=== PATIENT | female | born 1930 | race Caucasian/White ===

== ENCOUNTER 2016-12-29 16:34 | Inpatient (IN) | payer OTHER, MEDICARE ==
[~2016-12-29 16:34] MED LIST: CEFTRIAXONE 1 GM in DEXTROSE 5%-WATER - 50 ML IVPB SCH
--- NOTE | 2016-12-29 17:22 | PDOC ---
History of Present Illness - General Chief Complaint: Injury Stated Complaint: FALL History Source: Patient Exam Limitations: No Limitations - History of Present Illness Initial Comments: 12/29/16 17:06 Patient is a 86 yo F with PMH of IDDM1, who BIBEMS s/p mechanical unwitnessed fall. Patient states that she was in her usual health when she tripped and fell backward landing on her buttocks and mower back. She denies trauma to upper extremities, ribs, head. She denies LOC, focal neuro deficits, dizziness, palpitations, chest pain, nause/vomiting. She denies recent f/c, diarrhea, constipation, melena, hematochezia, LE edema, ataxia, unsteady gait. patient states that she was eventually able to get up and walk, although with pain in LLE. EMS states that she lives alone, they had to break into her apt, which was in unliveable conditions and filthy, appearing as if patient could not take care of herself. Her vital on admission are stable. She was hospitalized a yr ago due to R femur fracture s/p mechanical fall. PCP Dr Lynne 12/29/16 17:42 12/29/16 17:45 12/29/16 17:48 Past History - Past Medical History Allergies/Adverse Reactions: Allergies Allergy/AdvReac Type Severity Reaction Status Date / Time No Known Allergies Allergy Verified 08/22/14 14:00 Diabetes: Yes (nid) - Immunization History Immunization Up to Date: Yes - Psycho/Social/Smoking Cessation Hx Anxiety: No Suicidal Ideation: No Smoking History: Former smoker Have you smoked in the past 12 months: No Number of Cigarettes Smoked Daily: 10 Information on smoking cessation initiated: No 'Breaking Loose' booklet given: 08/22/14 Hx Alcohol Use: No Drug/Substance Use Hx: No Substance Use Type: None Review of Systems - Review of Systems Able to Perform ROS?: Yes Is the patient limited Serbian proficient: No Constitutional: Yes: Weakness (lle ). No: Chills, Fever HEENTM: No: Eye Pain, Blurred Vision, Double Vision, Nose Congestion, Throat Pain, Difficulty Swallowing Respiratory: No: Cough, Orthopnea, Shortness of Breath, Wheezing, Hemoptysis Cardiac (ROS): No: Chest Pain, Edema, Lightheadedness, Palpitations, Syncope ABD/GI: No: Abdominal Distended, Constipated, Diarrhea, Nausea, Rectal Bleeding , Vomiting, Abdominal cramping, Tarry Stools : No: Dysuria, Flank Pain Musculoskeletal: Yes: Joint Pain (L hip, femur pain ). No: Back Pain Integumentary: Yes: Dryness. No: Bruising, Change in Color, Rash Neurological: No: Headache, Numbness, Paresthesia, Seizure Psychiatric: No: Anxiety, Depression Endocrine: Yes: Change in Weight (cachectic ) Hematologic/Lymphatic: No: Anemia, Blood Clots, Easy Bleeding, Easy Bruising All Other Systems: Reviewed and Negative *Physical Exam - Vital Signs Last Vital Signs Temp Pulse Resp BP Pulse Ox 98.2 F 85 18 139/69 97 12/29/16 16:55 12/29/16 16:55 12/29/16 16:55 12/29/16 16:55 12/29/16 16:55 - Physical Exam Comments: 12/29/16 17:50 General: aao x 3 NAD HEENT: atraumatic, normocephalic, PERRLA EOMI, sclera anicteric, conjunctiva clear, dry mucous membranes CV: rrr s1s2 g Pulm: cta b/l GI: soft, nonender, nondistended, normoactive bowel sounds, no mass Musculoskeletal:no peripheral edema, L femur pain to palpation and with massive flexion of hip, unable to actively flex hip or bend knee, bridget gross bony deformities or spinal tenderness Neuro: CN II-XII intact, strenght 4-/5 un b/l upper and RLE. 3/5 LLE due to pain /weakness, bicep and patellar reflexes 1+ b/l Heart Score/ECG Review #1 ECG reviewed & interpreted by me at: 17:30 General ECG Interpretation: Sinus Rhythm, Normal Rate, Normal Intervals, No acute ischemic changes (nonspecific t flattening/inversion in precordial leads) ED Treatment Course - LABORATORY CBC & Chemistry Diagram: 12/29/16 17:30 12/29/16 17:30 Medical Decision Making - Medical Decision Making 12/29/16 17:53 Patient presents due to unwithessed mechanical fall. R/o fracture in affected area, metabolic and infections causes of fall -cbc w diff, cmp, ua, x ray L hip, lepvis, L spine/sacrum, L femur, L knee, CXR EKG unremarkable for arrythmia, strain or acs 12/29/16 18:49 X rays reveal patient is s/p b/l ORIF with IM nail in femurs, official read p/d Patient to be admitted due to inability to work, unsafe living condition and PT eval. Spoke to Dr Lares, she recommends CT pelvis w/o contrast 12/29/16 18:51 12/29/16 18:52 12/29/16 18:58 *DC/Admit/Observation/Transfer Diagnosis at time of Disposition: Unable to walk, Fall - Discharge Dispostion Admit: Yes
[2016-12-29] MEDS ORDERED: SODIUM CHLORIDE 1,000 ML IV STA (17:24)
[2016-12-29 18:31] LABS: ALBUMIN 3.7 g/dl (3.4-5.0); ANION GAP 14 (8-16); BILIRUBIN,TOTAL 1.7 mg/dL (0.2-1.0); CALCIUM 9.3 mg/dL (8.5-10.1); CO2 22 mmol/L (21-32); CREATININE 1.2 mg/dL (0.55-1.02); SGPT/ALT 27 U/L (12-78)
--- NOTE | 2016-12-29 19:15 | PDOC ---
Attending Attestation - Resident Resident Name: Ann Julien - ED Attending Attestation I have performed the following: I have examined & evaluated the patient, The case was reviewed & discussed with the resident, I agree w/resident's findings & plan - HPI HPI: 12/29/16 19:12 86 yo F with h/o DM, currently living alone, here s/p trip and fall. pt states she slipped backward and fell, landing on her back and hip. c/o left hip pain. was unable to walk after fall, crawled to phone. no head trauma. no loc no neck pain. per EMS on arrival pt in poor living conditions, filthy and unkempt. 01/11/17 18:29 - Physicial Exam PE: 12/29/16 19:16 on exam awake, alert l. head atraumatic. no cervical spine tenderness. lungs clear bilaterally. heart RRR no mrg/ abd soft NT ND. eext wwp. left hip ttp. min hip flexion due to pain, kne decre flex/ ext due to pain. 2 + dp/ pt pulses. right hip NT FROM. no mildline spinal tenderness. skin warm and dry. nuero alert and oriented x 3. - Medical Decision Making 01/11/17 18:30 pt will require admission. r/o traumatic injuris, syncope. labs r/o infction with ua. admit for social work pt possible placement or homesafety eval Heart Score/ECG Review #1 ECG reviewed & interpreted by me at: 17:30 General ECG Interpretation: Sinus Rhythm, Normal Rate (81), Normal Intervals, No acute ischemic changes NIH Stroke Scale - Initial Evaluation Level of consciousness: Alert Ask patient the month and their age: Answers both correctly Ask patient to open & close eyes; make fist and let go: Obeys both correctly Best gaze (horizontal eye movement): Normal Visual field testing: No visual field loss Facial paresis (Show teeth/raise eyebrows/close eyes tight): Normal symmetrical movement Motor Function: Left Arm: Normal Motor Function: Right Arm: Normal (extends arm 90 (or 45) degrees for 10 seconds without drift Motor Function: Left Leg: Normal (extends leg 30 degrees for 5 seconds without drift) Motor Function: Right Leg: Normal (extends leg 30 degrees for 5 seconds without drift) Limb Ataxia: No ataxia Sensory(Use pinprick test arms,legs,trunk,face/side to side): Normal Best language (Describe picture, name items, read sentences): No Aphasia Dysarthria (read several words): Normal articulation Extinction and Inattention: No abnormality - Total Score NIH Stroke Scale Score: 0
[2016-12-29 19:26] LABS: GLUCOSE,RANDOM 407 mg/dL (74-106)
[2016-12-29 19:36] LABS: BASOPHIL 0.8 % (0-2.0); EOSINOPHIL 0.2 % (0-4.5); MCH 31.3 pg (25.7-33.7); MCHC 32.5 g/dl (32.0-36.0); MEAN CELL VOLUME 96.1 fl (80-96); MEAN PLT VOLUME 8.8 fl (7.5-11.1); NEUTROPHILS 83.3 % (42.8-82.8); PLATELET COUNT 193 K/MM3 (134-434); RDW 14.1 % (11.6-15.6); WHITE BLOOD COUNT 10.8 K/mm3 (4.0-10.0)
[2016-12-29 19:55] LABS: ALK PHOS 78 U/L (45-117); SGOT/AST 37 U/L (15-37)
[2016-12-29] MEDS ORDERED: SODIUM CHLORIDE 0.9% 1000 ML INFUS.BAG IV ONE (21:08)
[2016-12-29 21:40] LABS: URINE APPEARANCE CLEAR; URINE BILIRUBIN NEGATIVE (NEGATIVE); URINE COLOR STRAW; URINE GLUCOSE (UA) 3+ (NEGATIVE); URINE KETONE 1+ (NEGATIVE); URINE NITRITE POSITIVE (NEGATIVE); URINE PROTEIN NEGATIVE (NEGATIVE); URINE UROBILINOGEN NEGATIVE E.U./dl (0.2-1.0)
[2016-12-29 21:56] LABS: URINE BLOOD 2+ (NEGATIVE); URINE LEUK ESTERASE TRACE (NEGATIVE)
[2016-12-29 22:00] LABS: URINE BACTERIA MANY /hpf (NONE SEEN); URINE RBC 1 /hpf (0-3); URINE WBC 8 /hpf (3-5)
[2016-12-29] MEDS ORDERED: SODIUM CHLORIDE 0.45% 1,000 ML IV SCH (23:15)
[2016-12-30 01:45] VITALS: BMI 21.9
[2016-12-30] MEDS: INSULIN SLIDING SCALE (NOVOLOG) 1 VIAL SQ SCH ×3 (06:58→17:43)
[2016-12-30] MEDS ORDERED: INSULIN DETEMIR 100 UNITS/ML MDV SQ SCH (07:00)
[2016-12-30] MEDS ORDERED: PT OWN MED DRAWER 7, Y5N ONE (09:29)
[2016-12-30] MEDS: cefTRIAXone 1 GM/50 ML BAG (PRE-DOCKED) IVPB SCH (09:41)
[2016-12-30] MEDS: ENOXAPARIN NA (PORCINE) 40 MG/0.4 ML DISP.SYRIN SQ SCH (09:42)
--- NOTE | 2016-12-30 10:57 | HP ---
Admitting History and Physical - Primary Care Physician PCP: Mike Carter - Admission Chief Complaint: s/p fall History of Present Illness: ER HISTORY - History of Present Illness Initial Comments: 12/29/16 17:06 Patient is a 86 yo F with PMH of IDDM1, who BIBEMS s/p mechanical unwitnessed fall. Patient states that she was in her usual health when she tripped and fell backward landing on her buttocks and mower back. She denies trauma to upper extremities, ribs, head. She denies LOC, focal neuro deficits, dizziness, palpitations, chest pain, nause/vomiting. She denies recent f/c, diarrhea, constipation, melena, hematochezia, LE edema, ataxia, unsteady gait. patient states that she was eventually able to get up and walk, although with pain in LLE. EMS states that she lives alone, they had to break into her apt, which was in unliveable conditions and filthy, appearing as if patient could not take care of herself. Her vital on admission are stable. She was hospitalized a yr ago due to R femur fracture s/p mechanical fall. Pt examined by me on the floors Her niece is with her . Pt c/o pain in left hip. She was putting her shoes on when she tripped over and fell. She sometimes uses walker to ambulate She lives alone. Has had multiple falls in the past. As per niece, when she fell yesterday, her neighbors came by and saw that she fell , the pt herself told them not to call EMS. EMS came to see her in a bad living condition, unsafe and unkept. Family lives in [facility] , only friends live nearby. Pt denies dizziness, chest pain or SOB. has pain when she walks . History Source: Patient, Family Member Limitations to Obtaining History: No Limitations - Past Medical History ...: No Endocrine: Yes: Diabetes Mellitus - Past Surgical History Past Surgical History: Yes: Joint Replacement - Smoking History Smoking history: Former smoker Have you smoked in the past 12 months: Yes Aproximately how many cigarettes per day: 10 - Alcohol/Substance Use Hx Alcohol Use: No Home Medications - Allergies Allergies/Adverse Reactions: Allergies Allergy/AdvReac Type Severity Reaction Status Date / Time No Known Allergies Allergy Verified 08/22/14 14:00 - Home Medications Home Medications: Ambulatory Orders Unobtainable [Unobtainable] 12/29/16 Review of Systems - Review of Systems Constitutional: denies: Chills, Fever, Weakness Musculoskeletal: reports: Joint Pain Physical Examination Vital Signs: Vital Signs Temperature 97.9 F 12/30/16 06:00 Pulse Rate 85 12/30/16 06:00 Respiratory Rate 20 12/30/16 06:00 Blood Pressure 155/80 12/30/16 06:00 O2 Sat by Pulse Oximetry (%) 98 12/29/16 22:15 Constitutional: Yes: No Distress, Calm Cardiovascular: Yes: Regular Rate and Rhythm Respiratory: Yes: Diminished Gastrointestinal: Yes: Normal Bowel Sounds, Soft. No: Distention, Tenderness Extremities: Yes: Other (left hip tenderness). No: Shortened Edema: No Psychiatric: Yes: Alert, Oriented Labs: Laboratory Last Values WBC 11.7 K/mm3 (4.0-10.0) H 12/30/16 10:20 RBC 3.78 M/mm3 (3.60-5.2) 12/30/16 10:20 Hgb 11.9 GM/dL (10.7-15.3) 12/30/16 10:20 Hct 36.3 % (32.4-45.2) 12/30/16 10:20 MCV 95.9 fl (80-96) 12/30/16 10:20 MCHC 32.7 g/dl (32.0-36.0) 12/30/16 10:20 RDW 14.0 % (11.6-15.6) 12/30/16 10:20 Plt Count 166 K/MM3 (134-434) 12/30/16 10:20 MPV 7.7 fl (7.5-11.1) D 12/30/16 10:20 Neutrophils % 83.3 % (42.8-82.8) H 12/29/16 17:30 Lymphocytes % 11.0 % (8-40) 12/29/16 17:30 Monocytes % 4.7 % (3.8-10.2) 12/29/16 17:30 Eosinophils % 0.2 % (0-4.5) 12/29/16 17:30 Basophils % 0.8 % (0-2.0) 12/29/16 17:30 Sodium 138 mmol/L (136-145) 12/30/16 10:20 Potassium 3.7 mmol/L (3.5-5.1) D 12/30/16 10:20 Chloride 103 mmol/L (98-107) 12/30/16 10:20 Carbon Dioxide 25 mmol/L (21-32) 12/30/16 10:20 Anion Gap 10 (8-16) 12/30/16 10:20 BUN 24 mg/dL (7-18) H D 12/30/16 10:20 Creatinine 0.9 mg/dL (0.55-1.02) D 12/30/16 10:20 Creat Clearance w eGFR 42.70 (>60) 12/29/16 17:30 POC Glucometer 360 UNITS (()) 12/30/16 11:12 Random Glucose 342 mg/dL (74-106) H* 12/30/16 10:20 Calcium 8.5 mg/dL (8.5-10.1) 12/30/16 10:20 Total Bilirubin 1.7 mg/dL (0.2-1.0) H D 12/29/16 17:30 AST 37 U/L (15-37) D 12/29/16 17:30 ALT 27 U/L (12-78) D 12/29/16 17:30 Alkaline Phosphatase 78 U/L (45-117) 12/29/16 17:30 Creatine Kinase 682 IU/L (26-192) H 12/29/16 17:30 CK-MB (CK-2) 3.651 ng/ml (0.5-3.6) H 12/29/16 17:30 Total Protein 7.0 g/dl (6.4-8.2) D 12/29/16 17:30 Albumin 3.7 g/dl (3.4-5.0) D 12/29/16 17:30 Urine Color Straw 12/29/16 19:30 Urine Appearance Clear 12/29/16 19:30 Urine pH 5.0 (5.0-8.0) 12/29/16 19:30 Ur Specific [place] 1.015 (1.005-1.025) 12/29/16 19:30 Urine Protein Negative (NEGATIVE) 12/29/16 19:30 Urine Glucose (UA) 3+ (NEGATIVE) H 12/29/16 19:30 Urine Ketones 1+ (NEGATIVE) H 12/29/16 19:30 Urine Blood 2+ (NEGATIVE) H 12/29/16 19:30 Urine Nitrite Positive (NEGATIVE) 12/29/16 19:30 Urine Bilirubin Negative (NEGATIVE) 12/29/16 19:30 Urine Urobilinogen Negative E.U./dl (0.2-1.0) 12/29/16 19:30 Ur Leukocyte Esterase Trace (NEGATIVE) H 12/29/16 19:30 Urine RBC 1 /hpf (0-3) 12/29/16 19:30 Urine WBC 8 /hpf (3-5) 12/29/16 19:30 Ur Epithelial Cells Rare /hpf (FEW) 12/29/16 19:30 Urine Bacteria Many /hpf (NONE SEEN) 12/29/16 19:30 Imaging - Results Chest X-ray: Image Reviewed (no infiltrate) X-ray: Report Reviewed Cat Scan: Report Reviewed EKG: Image Reviewed (NSR) Problem List - Problems (1) Fall Code(s): W19.XXXA - UNSPECIFIED FALL, INITIAL ENCOUNTER (2) Unable to ambulate Code(s): R26.2 - DIFFICULTY IN WALKING, NOT ELSEWHERE CLASSIFIED (3) HTN (hypertension) Code(s): I10 - ESSENTIAL (PRIMARY) HYPERTENSION Qualifiers: Hypertension type: unspecified secondary hypertension Qualified Code(s) : I15.9 - Secondary hypertension, unspecified; I15 - Secondary hypertension (4) Hip fracture, left Code(s): S72.002A - FRACTURE OF UNSP PART OF NECK OF LEFT FEMUR, INIT Qualifiers: Fracture type: closed fracture (5) IDDM (insulin dependent diabetes mellitus) Code(s): E11.9 - TYPE 2 DIABETES MELLITUS WITHOUT COMPLICATIONS Z79.4 - SENIOR CARE (CURRENT) USE OF INSULIN (6) History of fracture Code(s): Z87.81 - PERSONAL HISTORY OF (HEALED) TRAUMATIC FRACTURE (7) Multiple falls Code(s): R29.6 - REPEATED FALLS Assessment/Plan PLAN Noting the xrays and CT scan-- it seems that she has had multiple falls sin the past , old fractures to lower spine, hips, femurs, knees-- she has had surgeries for B/l hips and knees pt is danger to self Explained to pt that she will need STR and eventually placement in termite control servicer facility such as adult homes if possible spoke with niece and window caser pain control Ortho eval treat UTI-- iv antibiotics-- cultures pending diabetic control-- check A1C DVT prophylaxis-- Lovenox sc dc iv fluids Pt eval time spent 35 min
[2016-12-30 11:03] LABS: MCH 31.4 pg (25.7-33.7); MCHC 32.7 g/dl (32.0-36.0); MEAN CELL VOLUME 95.9 fl (80-96); MEAN PLT VOLUME 7.7 fl (7.5-11.1); PLATELET COUNT 166 K/MM3 (134-434); WHITE BLOOD COUNT 11.7 K/mm3 (4.0-10.0)
[2016-12-30] MEDS ORDERED: oxyCODONE HCL 5 MG TABLET PO PRN (11:30)
[2016-12-30 11:36] LABS: ANION GAP 10 (8-16); CALCIUM 8.5 mg/dL (8.5-10.1); CO2 25 mmol/L (21-32); CREATININE 0.9 mg/dL (0.55-1.02)
[2016-12-30 11:57] LABS: GLUCOSE,RANDOM 342 mg/dL (74-106)
[2016-12-30 13:34] LABS: TROPONIN I 0.03 ng/ml (0.00-0.05)
[2016-12-30] MEDS: LIDOCAINE 5% TOPICAL PATCH TP SCH (13:52)
--- NOTE | 2016-12-30 14:55 | EKG ---
Test Reason : Blood Pressure : / mmHG Vent. Rate : 081 BPM Atrial Rate : 081 BPM P-R Int : 142 ms QRS Dur : 070 ms QT Int : 380 ms P-R-T Axes : 069 072 109 degrees QTc Int : 441 ms NORMAL SINUS RHYTHM POSSIBLE LEFT ATRIAL ENLARGEMENT LOW VOLTAGE QRS NONSPECIFIC T WAVE ABNORMALITY ABNORMAL ECG WHEN COMPARED WITH ECG OF 22-AUG-2014 17:00, [place] INTERVAL HAS INCREASED NONSPECIFIC T WAVE ABNORMALITY NO LONGER EVIDENT IN INFERIOR LEADS Confirmed by SKY ESCALONA MD ([id number]) on 12/30/2016 2:55:03 PM Referred By: Confirmed By:SKY ESCALONA MD
[2016-12-30] MEDS: INSULIN DETEMIR 100 UNITS/ML MDV SQ SCH (17:43)
[2016-12-30] MEDS: LIDOCAINE PATCH REMOVAL MC SCH (21:33)
--- NOTE | 2016-12-30 22:20 | CONSULT ---
Consult - text type - Consultation Consultation Note: FULL CONSULT DICTATED IMP: LEFT ILIAC WING FX PLAN: WBAT, PT, DC PLANNING
[2016-12-31] MEDS: INSULIN SLIDING SCALE (NOVOLOG) 1 VIAL SQ SCH ×3 (06:38→17:42)
[2016-12-31] MEDS: INSULIN DETEMIR 100 UNITS/ML MDV SQ SCH ×2 (06:38→22:11)
[2016-12-31] MEDS ORDERED: DEXTROSE 50%-WATER - 25 GM/50 ML VIAL IVPUSH ONE (06:54)
[2016-12-31 07:45] LABS: ALBUMIN 3.4 g/dl (3.4-5.0); ALK PHOS 70 U/L (45-117); ANION GAP 11 (8-16); BILIRUBIN,TOTAL 0.8 mg/dL (0.2-1.0); CO2 24 mmol/L (21-32); CREATININE 1.1 mg/dL (0.55-1.02); SGOT/AST 45 U/L (15-37); SGPT/ALT 27 U/L (12-78)
[2016-12-31 07:48] LABS: GLUCOSE,RANDOM 464 mg/dL (74-106)
[2016-12-31] MEDS ORDERED: INSULIN DETEMIR 100 UNITS/ML MDV SQ ONE ×3 (07:54→19:54)
[2016-12-31] MEDS ORDERED: INSULIN (NOVOLOG) ASPART 100 UNITS/ML 10ML VIAL ONE (07:54)
[2016-12-31] MEDS ORDERED: PT OWN MED DRAWER 7, Y5N ONE (07:55)
--- NOTE | 2016-12-31 09:11 | PN ---
Progress Note, Physician Chief Complaint: hypoglycemic this AM she had snacks at bedtime States her sugars are always like this received d50 and sugars went up in the 400's. has mild pain in left hip - Current Medication List Current Medications: Active Medications Acetaminophen (Tylenol -) 650 mg PO Q6H PRN PRN Reason: PAIN Ceftriaxone Sodium (Rocephin 1gm Ivpb (Pre-Docked)) 1 gm IVPB DAILY [facility] Last Admin: 12/30/16 09:41 Dose: 1 gm Enoxaparin Sodium (Lovenox -) 40 mg SQ DAILY [facility] Last Admin: 12/30/16 09:42 Dose: 40 mg Insulin Aspart (Novolog Vial Sliding Scale -) 1 vial SQ TIDAC [facility] PRN Reason: Protocol Last Admin: 12/31/16 06:38 Dose: Not Given Insulin Detemir (Levemir Vial) 16 units SQ BIDAC [facility] Last Admin: 12/31/16 06:38 Dose: Not Given Lidocaine (Lidoderm Patch -) 1 patch TP DAILY [facility] Last Admin: 12/30/16 13:52 Dose: 1 patch Miscellaneous (Lidoderm Patch Removal) 1 each MC DAILY@2200 [facility] Last Admin: 12/30/16 21:33 Dose: 1 each Oxycodone HCl (Roxicodone -) 5 mg PO Q6H PRN PRN Reason: PAIN - Objective Vital Signs: Vital Signs Temperature 98.0 F 12/31/16 06:00 Pulse Rate 80 12/31/16 06:00 Respiratory Rate 18 12/31/16 06:00 Blood Pressure 156/80 12/31/16 06:00 O2 Sat by Pulse Oximetry (%) 97 12/30/16 21:00 Constitutional: Yes: No Distress, Calm Cardiovascular: Yes: Regular Rate and Rhythm Respiratory: Yes: CTA Bilaterally Gastrointestinal: Yes: Normal Bowel Sounds, Soft. No: Distention, Palpable Mass , Tenderness Edema: No Labs: CBC, BMP 12/30/16 10:20 12/31/16 07:00 Problem List - Problems (1) Fall Code(s): W19.XXXA - UNSPECIFIED FALL, INITIAL ENCOUNTER (2) Unable to ambulate Code(s): R26.2 - DIFFICULTY IN WALKING, NOT ELSEWHERE CLASSIFIED (3) HTN (hypertension) Code(s): I10 - ESSENTIAL (PRIMARY) HYPERTENSION Qualifiers: Hypertension type: unspecified secondary hypertension Qualified Code(s) : I15.9 - Secondary hypertension, unspecified; I15 - Secondary hypertension (4) Hip fracture, left Code(s): S72.002A - FRACTURE OF UNSP PART OF NECK OF LEFT FEMUR, INIT Qualifiers: Fracture type: closed fracture (5) IDDM (insulin dependent diabetes mellitus) Code(s): E11.9 - TYPE 2 DIABETES MELLITUS WITHOUT COMPLICATIONS Z79.4 - BOWLING FLOOR MANAGER (CURRENT) USE OF INSULIN (6) History of fracture Code(s): Z87.81 - PERSONAL HISTORY OF (HEALED) TRAUMATIC FRACTURE (7) Multiple falls Code(s): R29.6 - REPEATED FALLS Assessment/Plan PLAN decrease PM dose of Levemir snacks in between meals likely brittle DM avoid hypoglycemia Noting the xrays and CT scan-- it seems that she has had multiple falls sin the past , old fractures to lower spine, hips, femurs, knees-- she has had surgeries for B/l hips and knees pt is danger to self Explained to pt that she will need STR and eventually placement in terminal block assembler facility such as adult homes if possible spoke with niece and family service caseworker pain control Ortho eval appreciated iv antibiotics for UTI -- cultures prelim noted DVT prophylaxis-- Lovenox sc Pt eval dc plan for tomorrow to STR if available
[2016-12-31] MEDS ORDERED: POLYETHYLENE GLYCOL 3350 119 GM BTL PO PRN (09:57)
[2016-12-31] MEDS: cefTRIAXone 1 GM/50 ML BAG (PRE-DOCKED) IVPB SCH (10:05)
[2016-12-31] MEDS: LIDOCAINE 5% TOPICAL PATCH TP SCH (10:05)
[2016-12-31] MEDS: ENOXAPARIN NA (PORCINE) 40 MG/0.4 ML DISP.SYRIN SQ SCH (10:05)
[2016-12-31] MEDS: ACETAMINOPHEN 325 MG TABLET (FP) PO PRN ×2 (13:35→22:12)
--- NOTE | 2016-12-31 15:40 | CONS ---
DATE OF CONSULTATION: 12/30/2016 The patient is an 86-year-old female status post fall, complaining of pain upon ambulation on her left hip. Patient is status post bilateral long gamma nails for previous fractures. On physical exam, there is no limb length discrepancy. She has good motion of hip, knee, ankles and toes. She is able to straight-leg raise, does have some pain with straight-leg raise and also with palpation around her ilium. No tenderness in the sacrum, SI joint, pubis, or greater trochanter region. Calves are soft, nontender. Neurovascularly intact. X-rays and CAT scan revealed a left iliac wing fracture posteriorly. The rest of the pelvis, hips and knees are negative for fracture. IMPRESSION: Left iliac wing fracture. PLAN: Analgesics, weightbearing as tolerated, out of bed, PT, and discharge planning. MARINA GREENWOOD M.D. [id number]
[2016-12-31] MEDS: LIDOCAINE PATCH REMOVAL MC SCH (22:11)
[2017-01-01] MEDS: INSULIN DETEMIR 100 UNITS/ML MDV SQ SCH ×2 (06:36→21:23)
[2017-01-01] MEDS: INSULIN SLIDING SCALE (NOVOLOG) 1 VIAL SQ SCH ×3 (06:37→17:37)
[2017-01-01] MEDS ORDERED: INSULIN DETEMIR 100 UNITS/ML MDV SQ ONE (06:42)
[2017-01-01] MEDS ORDERED: INSULIN (NOVOLOG) ASPART 100 UNITS/ML 10ML VIAL ONE (06:42)
[2017-01-01] MEDS ORDERED: PT OWN MED DRAWER 7, Y5N ONE (06:44)
--- NOTE | 2017-01-01 07:55 | PN ---
Progress Note (short form) - Note Progress Note: AVSS COMFORTABLE LESS PAIN CALF SOFT AND NT NVI PLAN: OOB, PT-WBAT, DC PLANNING
--- NOTE | 2017-01-01 09:23 | PN ---
Progress Note (short form) - Note Progress Note: pt seen/ examined. chart reviewed feels ok Vital Signs Temp 98.1 F 01/01/17 06:00 Pulse 72 01/01/17 06:00 Resp 18 01/01/17 06:00 BP 134/55 01/01/17 06:00 Pulse Ox 93 L 12/31/16 21:00 Intake & Output 12/31/16 12/31/16 01/01/17 11:59 23:59 11:59 Intake Total 540 1100 120 Balance 540 1100 120 Intake: Oral 540 1100 120 Other: Voiding Method Diaper Diaper Diaper # Unmeasured Voids Void 2 2 1 Bowel Movement No No No Active Medications Acetaminophen (Tylenol -) 650 mg PO Q6H PRN PRN Reason: PAIN Last Admin: 12/31/16 22:12 Dose: 650 mg Ceftriaxone Sodium (Rocephin 1gm Ivpb (Pre-Docked)) 1 gm IVPB DAILY [facility] Last Admin: 12/31/16 10:05 Dose: 1 gm Enoxaparin Sodium (Lovenox -) 40 mg SQ DAILY [facility] Last Admin: 12/31/16 10:05 Dose: 40 mg Insulin Aspart (Novolog Vial Sliding Scale -) 1 vial SQ TIDAC [facility] PRN Reason: Protocol Last Admin: 01/01/17 06:37 Dose: 2 units Insulin Detemir (Levemir Vial) 10 units SQ HS [facility] Last Admin: 12/31/16 22:11 Dose: Not Given Insulin Detemir (Levemir Vial) 14 units SQ AM [facility] Last Admin: 01/01/17 06:36 Dose: 14 units Lidocaine (Lidoderm Patch -) 1 patch TP DAILY [facility] Last Admin: 12/31/16 10:05 Dose: 1 patch Miscellaneous (Lidoderm Patch Removal) 1 each MC DAILY@2200 [facility] Last Admin: 12/31/16 22:11 Dose: 1 each Oxycodone HCl (Roxicodone -) 5 mg PO Q6H PRN PRN Reason: PAIN Last Admin: 12/31/16 22:12 Dose: 5 mg Polyethylene Glycol (Miralax (For Daily Use) -) 17 gm PO DAILY PRN PRN Reason: CONSTIPATION CBC, BMP 12/30/16 10:20 12/31/16 07:00 bgm-, reviewed u/c - pending Physical Exam Constitutional: Yes: No Distress, Calm, comfortable Cardiovascular: Yes: Regular Rate and Rhythm Respiratory: Yes: CTA Bilaterally Gastrointestinal: Yes: Normal Bowel Sounds, Soft. No: Distention, Palpable Mass , Tenderness Edema: No Labs: ---ordered for today Problem List - Problems (1) Fall Code(s): W19.XXXA - UNSPECIFIED FALL, INITIAL ENCOUNTER (2) Unable to ambulate Code(s): R26.2 - DIFFICULTY IN WALKING, NOT ELSEWHERE CLASSIFIED (3) HTN (hypertension) Code(s): I10 - ESSENTIAL (PRIMARY) HYPERTENSION Qualifiers: Hypertension type: unspecified secondary hypertension Qualified Code(s) : I15.9 - Secondary hypertension, unspecified; I15 - Secondary hypertension (4) Hip fracture, left Code(s): S72.002A - FRACTURE OF UNSP PART OF NECK OF LEFT FEMUR, INIT Qualifiers: Fracture type: closed fracture (5) IDDM (insulin dependent diabetes mellitus) Code(s): E11.9 - TYPE 2 DIABETES MELLITUS WITHOUT COMPLICATIONS Z79.4 - RETIREMENT (CURRENT) USE OF INSULIN (6) History of fracture Code(s): Z87.81 - PERSONAL HISTORY OF (HEALED) TRAUMATIC FRACTURE (7) Multiple falls Code(s): R29.6 - REPEATED FALLS Assessment/Plan Clinically stable but sugar fluctuates widely u/c pending will continue present care abx f/u u/c will ask endo to evaluate monitor bgm f/u labs today pt will follow
[2017-01-01] MEDS: cefTRIAXone 1 GM/50 ML BAG (PRE-DOCKED) IVPB SCH (10:07)
[2017-01-01] MEDS: ENOXAPARIN NA (PORCINE) 40 MG/0.4 ML DISP.SYRIN SQ SCH (10:07)
[2017-01-01] MEDS: LIDOCAINE 5% TOPICAL PATCH TP SCH (10:08)
[2017-01-01 11:13] LABS: ALBUMIN 2.7 g/dl (3.4-5.0); ANION GAP 8 (8-16); CALCIUM 8.1 mg/dL (8.5-10.1); CO2 29 mmol/L (21-32); CREATININE 0.8 mg/dL (0.55-1.02); GLUCOSE,RANDOM 168 mg/dL (74-106); SGOT/AST 31 U/L (15-37); SGPT/ALT 21 U/L (12-78)
[2017-01-01 11:15] LABS: ALK PHOS 67 U/L (45-117); BILIRUBIN,TOTAL 0.5 mg/dL (0.2-1.0); TOT PROT 5.8 g/dl (6.4-8.2)
[2017-01-01 11:21] LABS: BASOPHIL 2.5 % (0-2.0); EOSINOPHIL 10.3 % (0-4.5); MCH 31.8 pg (25.7-33.7); MCHC 33.5 g/dl (32.0-36.0); MEAN CELL VOLUME 94.7 fl (80-96); PLATELET COUNT 173 K/MM3 (134-434); RDW 13.9 % (11.6-15.6); WHITE BLOOD COUNT 8.4 K/mm3 (4.0-10.0)
[2017-01-01] MEDS: LIDOCAINE PATCH REMOVAL MC SCH (21:23)
[2017-01-01] MEDS: ACETAMINOPHEN 325 MG TABLET (FP) PO PRN (21:24)
[2017-01-02] MEDS: INSULIN SLIDING SCALE (NOVOLOG) 1 VIAL SQ SCH ×3 (06:33→17:27)
[2017-01-02] MEDS: INSULIN DETEMIR 100 UNITS/ML MDV SQ SCH (06:33)
[2017-01-02] MEDS ORDERED: INSULIN (NOVOLOG) ASPART 100 UNITS/ML 10ML VIAL ONE (06:53)
[2017-01-02] MEDS ORDERED: INSULIN DETEMIR 100 UNITS/ML MDV SQ ONE (06:53)
[2017-01-02] MEDS ORDERED: PT OWN MED DRAWER 7, Y5N ONE (06:54)
--- NOTE | 2017-01-02 09:05 | PN ---
Progress Note, Physician Chief Complaint: feels well no complaints - Current Medication List Current Medications: Active Medications Acetaminophen (Tylenol -) 650 mg PO Q6H PRN PRN Reason: PAIN Last Admin: 01/01/17 21:24 Dose: 650 mg Ceftriaxone Sodium (Rocephin 1gm Ivpb (Pre-Docked)) 1 gm IVPB DAILY [facility] Last Admin: 01/01/17 10:07 Dose: 1 gm Enoxaparin Sodium (Lovenox -) 40 mg SQ DAILY [facility] Last Admin: 01/01/17 10:07 Dose: 40 mg Insulin Aspart (Novolog Vial Sliding Scale -) 1 vial SQ TIDAC [facility] PRN Reason: Protocol Last Admin: 01/02/17 06:33 Dose: 4 units Insulin Detemir (Levemir Vial) 10 units SQ HS [facility] Last Admin: 01/01/17 21:23 Dose: Not Given Insulin Detemir (Levemir Vial) 14 units SQ AM [facility] Last Admin: 01/02/17 06:33 Dose: 14 units Lidocaine (Lidoderm Patch -) 1 patch TP DAILY [facility] Last Admin: 01/01/17 10:08 Dose: 1 patch Miscellaneous (Lidoderm Patch Removal) 1 each MC DAILY@2200 [facility] Last Admin: 01/01/17 21:23 Dose: 1 each Oxycodone HCl (Roxicodone -) 5 mg PO Q6H PRN PRN Reason: PAIN Last Admin: 12/31/16 22:12 Dose: 5 mg Polyethylene Glycol (Miralax (For Daily Use) -) 17 gm PO DAILY PRN PRN Reason: CONSTIPATION - Objective Vital Signs: Vital Signs Temperature 97.8 F 01/02/17 06:00 Pulse Rate 73 01/02/17 06:00 Respiratory Rate 20 01/02/17 06:00 Blood Pressure 158/73 01/02/17 06:00 O2 Sat by Pulse Oximetry (%) 98 01/01/17 20:58 Constitutional: Yes: No Distress Cardiovascular: Yes: Regular Rate and Rhythm Respiratory: Yes: CTA Bilaterally Gastrointestinal: Yes: Normal Bowel Sounds, Soft. No: Tenderness Edema: No Labs: CBC, BMP 01/01/17 10:25 01/01/17 10:25 Problem List - Problems (1) Fall Code(s): W19.XXXA - UNSPECIFIED FALL, INITIAL ENCOUNTER (2) Unable to ambulate Code(s): R26.2 - DIFFICULTY IN WALKING, NOT ELSEWHERE CLASSIFIED (3) HTN (hypertension) Code(s): I10 - ESSENTIAL (PRIMARY) HYPERTENSION Qualifiers: Hypertension type: unspecified secondary hypertension Qualified Code(s) : I15.9 - Secondary hypertension, unspecified; I15 - Secondary hypertension (4) Hip fracture, left Code(s): S72.002A - FRACTURE OF UNSP PART OF NECK OF LEFT FEMUR, INIT Qualifiers: Fracture type: closed fracture (5) IDDM (insulin dependent diabetes mellitus) Code(s): E11.9 - TYPE 2 DIABETES MELLITUS WITHOUT COMPLICATIONS Z79.4 - CARE HOME (CURRENT) USE OF INSULIN (6) History of fracture Code(s): Z87.81 - PERSONAL HISTORY OF (HEALED) TRAUMATIC FRACTURE (7) Multiple falls Code(s): R29.6 - REPEATED FALLS Assessment/Plan PLAN Levemir adjusted Endocrinology eval noted snacks in between meals likely brittle DM avoid hypoglycemia Noting the xrays and CT scan-- it seems that she has had multiple falls sin the past , old fractures to lower spine, hips, femurs, knees-- she has had surgeries for B/l hips and knees pt is danger to self Explained to pt that she will need STR and eventually placement in intermediate frame tender facility such as adult homes if possible spoke with niece and returned case inspector pain control iv antibiotics for UTI -- cultures noted DVT prophylaxis-- Lovenox sc Pt eval dc plan for tomorrow to STR if available
--- NOTE | 2017-01-02 09:28 | CONSULT ---
Consult Consult Specialty:: Endocrinology Referred by:: Dr Benjamin Reason for Consultation:: Uncontrolled blood sugar - History of Present Illness Chief Complaint: Fall History of Present Illness: This is a 86 yo F with h/o DM, who was admitted to the hospital after she was brought ED s/p unwitnessed fall. Patient stated that she was in her usual health when she tripped and fell backward landing on her buttocks and lower back. Pt found to have fracture of left Iliac bone posteriorly. During hospital stay pt found to have widely fluctuating blood sugar from 40s to 400. Says she has had DM from age 20s, was on oral meds for a short while and was switched to Insulin. Blood sugar fluctuates widely at home on Insulin regimen of NPH Insulin 19 units daily and regular Insulin 3 units when blood sugar is higher than 200 or 250. Has been hospitalized for hypoglycemia but can't say how many times or when it happened the last time. Denies any visual symptoms or paresthesia of feet. Has family h/o DM in brother. - History Source History Provided By: Patient, Medical Record - Past Medical History ...: No Musculoskeletal: Yes: Other (Left hip pain) Endocrine: Yes: Diabetes Mellitus - Past Surgical History Past Surgical History: Yes: Joint Replacement - Alcohol/Substance Use Hx Alcohol Use: No - Smoking History Smoking history: Former smoker Have you smoked in the past 12 months: Yes Aproximately how many cigarettes per day: 10 Home Medications - Allergies Allergies/Adverse Reactions: Allergies Allergy/AdvReac Type Severity Reaction Status Date / Time No Known Allergies Allergy Verified 08/22/14 14:00 - Home Medications Home Medications: Ambulatory Orders Unobtainable [Unobtainable] 12/29/16 Family Disease History - Family Disease History Family Disease History: Diabetes: Brother Review of Systems - Review of Systems Constitutional: reports: No Symptoms Eyes: reports: No Symptoms HENT: reports: No Symptoms Neck: reports: No Symptoms Cardiovascular: reports: No Symptoms Respiratory: reports: No Symptoms Gastrointestinal: reports: No Symptoms Genitourinary: reports: No Symptoms Integumentary: reports: No Symptoms Neurological: reports: No Symptoms Endocrine: reports: No Symptoms Physical Exam Vital Signs: Vital Signs Temperature 97.8 F 01/02/17 06:00 Pulse Rate 73 01/02/17 06:00 Respiratory Rate 20 01/02/17 06:00 Blood Pressure 158/73 01/02/17 06:00 O2 Sat by Pulse Oximetry (%) 98 01/01/17 20:58 Constitutional: Yes: No Distress, Calm Eyes: Yes: Conjunctiva Clear, EOM Intact HENT: Yes: Atraumatic, Normocephalic Neck: Yes: Supple, Trachea Midline Cardiovascular: Yes: Regular Rate and Rhythm Respiratory: Yes: Regular, CTA Bilaterally Gastrointestinal: Yes: Normal Bowel Sounds, Soft Extremities: Yes: WNL Edema: No Neurological: Yes: Alert, Oriented Labs: CBC, BMP 01/01/17 10:25 01/01/17 10:25 Imaging - Results Cat Scan: Report Reviewed Assessment/Plan AP: Left Iliac fracture s/p fall Brittle DM: uncontrolled with A1c of 10.2 Decrease Levemir to 12 units daily Change Novolog SS coverage, Starting at 2 unit when FS > 150 with increments of one units. C Peptide as outpt. May benefit from adding oral hypoglycemics if type 2. Nutrition consult Will F/U
[2017-01-02] MEDS: cefTRIAXone 1 GM/50 ML BAG (PRE-DOCKED) IVPB SCH (09:56)
[2017-01-02] MEDS: ENOXAPARIN NA (PORCINE) 40 MG/0.4 ML DISP.SYRIN SQ SCH ×2 (09:57→10:08)
[2017-01-02] MEDS: LIDOCAINE 5% TOPICAL PATCH TP SCH (09:57)
[2017-01-02] MEDS: ACETAMINOPHEN 325 MG TABLET (FP) PO PRN ×2 (10:27→21:24)
[2017-01-02] MEDS: LIDOCAINE PATCH REMOVAL MC SCH (21:25)
[2017-01-02] MEDS ORDERED: INSULIN SLIDING SCALE (NOVOLOG) 1 VIAL SQ SCH (22:00)
[2017-01-03] MEDS: INSULIN SLIDING SCALE (NOVOLOG) 1 VIAL SQ SCH (06:06)
[2017-01-03] MEDS ORDERED: INSULIN DETEMIR 100 UNITS/ML MDV SQ SCH (07:00)
--- NOTE | 2017-01-03 08:48 | PN ---
Progress Note (short form) - Note Progress Note: In bed, In NAD Occasional left hip pain Blood sugar still fluctuating but no hypos Vital Signs Period Temp Pulse Resp BP Sys/Patel Pulse Ox Last 24 Hr 98.0 F-98.5 F 79-92 16-20 117-158/53-65 97 PE: Awake, alert Neck: Supple, No JVD HEENT: EOMI Lungs: CTA, No added sounds CVD: S1S2 Abd: Benign, No HSM, Ext: No edema Neuro: No focal deficit CMP Sodium 142 mmol/L (136-145) 01/01/17 10:25 Potassium 3.8 mmol/L (3.5-5.1) 01/01/17 10:25 Chloride 105 mmol/L (98-107) 01/01/17 10:25 Carbon Dioxide 29 mmol/L (21-32) D 01/01/17 10:25 Anion Gap 8 (8-16) 01/01/17 10:25 BUN 22 mg/dL (7-18) H 01/01/17 10:25 Creatinine 0.8 mg/dL (0.55-1.02) D 01/01/17 10:25 Creat Clearance w eGFR > 60 (>60) 01/01/17 10:25 POC Glucometer 397 UNITS (()) 01/03/17 06:03 Random Glucose 168 mg/dL (74-106) H D 01/01/17 10:25 Hemoglobin A1c % 10.2 % (4.8-6.0) H 12/30/16 06:00 Calcium 8.1 mg/dL (8.5-10.1) L 01/01/17 10:25 Total Bilirubin 0.5 mg/dL (0.2-1.0) D 01/01/17 10:25 AST 31 U/L (15-37) D 01/01/17 10:25 ALT 21 U/L (12-78) D 01/01/17 10:25 Alkaline Phosphatase 67 U/L (45-117) 01/01/17 10:25 Creatine Kinase 614 IU/L (26-192) H 12/30/16 10:20 CK-MB (CK-2) 4.690 ng/ml (0.5-3.6) H 12/30/16 10:20 Troponin I 0.03 ng/ml (0.00-0.05) 12/30/16 10:20 Total Protein 5.8 g/dl (6.4-8.2) L 01/01/17 10:25 Albumin 2.7 g/dl (3.4-5.0) L D 01/01/17 10:25 Current Medications Generic Name Dose Route Start Last Admin Trade Name Freq PRN Reason Stop Dose Admin Acetaminophen 650 mg 12/29/16 19:14 01/02/17 21:24 Tylenol - PO 650 mg Q6H PRN Administration PAIN Ceftriaxone Sodium 1 gm 12/30/16 10:00 01/02/17 09:56 Rocephin 1gm Ivpb (Pre-Docked) IVPB 1 gm DAILY [facility] Administration Enoxaparin Sodium 40 mg 12/30/16 10:00 01/02/17 10:08 Lovenox - SQ Not Given DAILY [facility] Insulin Aspart 1 vial 01/02/17 09:40 01/03/17 06:06 Novolog Vial Sliding Scale - SQ 6 unit TIDAC [facility] Administration Protocol Insulin Aspart 1 vial 01/02/17 22:00 01/02/17 21:30 Novolog Vial Sliding Scale - SQ Not Given [facility] Protocol Insulin Detemir 12 units 01/03/17 07:00 01/03/17 06:06 Levemir Vial SQ 12 units AM [facility] Administration Lidocaine 1 patch 12/30/16 12:00 01/02/17 09:57 Lidoderm Patch - TP 1 patch DAILY [facility] Administration Miscellaneous 1 each 12/30/16 22:00 01/02/17 21:25 Lidoderm Patch Removal MC 1 each DAILY@2200 [facility] Administration Oxycodone HCl 5 mg 12/30/16 11:30 12/31/16 22:12 Roxicodone - PO 5 mg Q6H PRN Administration PAIN Polyethylene Glycol 17 gm 12/31/16 09:57 Miralax (For Daily Use) - PO DAILY PRN CONSTIPATION AP: Left Iliac fracture s/p fall Brittle DM: uncontrolled with A1c of 10.2 Continue Levemir to 12 units daily Change Novolog SS for bedtime. No change in premeal coverage. C Peptide as outpt. May benefit from adding oral hypoglycemics if type 2. Nutrition consult Will F/U
[2017-01-03] MEDS ORDERED: INSULIN SLIDING SCALE (NOVOLOG) 1 VIAL SQ SCH (08:50)
[2017-01-03] MEDS: ENOXAPARIN NA (PORCINE) 40 MG/0.4 ML DISP.SYRIN SQ SCH (09:17)
[2017-01-03] MEDS: LIDOCAINE 5% TOPICAL PATCH TP SCH (09:17)
[2017-01-03] MEDS: cefTRIAXone 1 GM/50 ML BAG (PRE-DOCKED) IVPB SCH (09:17)
--- NOTE | 2017-01-03 10:59 | DS ---
Physical Examination Vital Signs: Vital Signs Temperature 98.0 F 01/03/17 06:00 Pulse Rate 84 01/03/17 06:00 Respiratory Rate 20 01/03/17 06:00 Blood Pressure 158/53 01/03/17 06:00 O2 Sat by Pulse Oximetry (%) 97 01/02/17 22:00 Constitutional: Yes: No Distress, Calm Cardiovascular: Yes: Regular Rate and Rhythm Respiratory: Yes: CTA Bilaterally Gastrointestinal: Yes: Normal Bowel Sounds, Soft. No: Abdomen, Obese, Distention, Tenderness Edema: No Labs: CBC, BMP 01/01/17 10:25 01/01/17 10:25 Discharge Summary Reason For Visit: UNABLE TO WALK/FALL Current Active Problems Fall (Acute) History of fracture (Acute) Multiple falls (Acute) Unable to ambulate (Acute) Hospital Course: Admitted for frequent falls- pt fell and sustained left iliac bone Also found to have Ecoli UTI-- on Ceftriaxone Has had multiple falls in the past Family wishes for STR and eventually collective bargaining specialist , possibly adult living facility Pt stable for dc to STR-- will need PO Keflex for UTI Condition: Improved - Instructions Disposition: [facility] - Home Medications Comprehensive Discharge Medication List: Ambulatory Orders Unobtainable [Unobtainable] 12/29/16
[2017-01-03 11:41] VITALS: BP 121/60; PULSE 86; TEMP 97.9
[2017-01-03] MEDS ORDERED: metFORMIN HCL 500 MG TABLET (FP) PO SCH (16:30)
== END 2017-01-03 11:44 | DRG 536 ==
LOC: JER 16:34 → JERBED 18:59 → J5S 23:44
PROVIDERS: ADMIT Internal Medicine; ATTEND Internal Medicine
DX: S32.302A Unspecified fracture of left ilium, initial encounter for closed fracture (principal); R64 Cachexia; N39.0 Urinary tract infection, site not specified; E11.65 Type 2 diabetes mellitus with hyperglycemia; I10 Essential (primary) hypertension; Z87.891 Personal history of nicotine dependence; W19.XXXA Unspecified fall, initial encounter; Y93.9 Activity, unspecified; Y92.89 Other specified places as the place of occurrence of the external cause; Y99.9 Unspecified external cause status; Z68.21 Body mass index [BMI] 21.0-21.9, adult; B96.20 Unspecified Escherichia coli [E. coli] as the cause of diseases classified elsewhere
CPT/HCPCS: 36415; 71010-TC; 72100-TC; 72192-TC; 73523-TC; 73552-TC-LT; 73560-TC-LT; 80048; 80053; 81003; 81015; 82550; 82553; 83036; 84484; 85025; 85027; 87086; 87186; 93005; 93010; 97116-GP; 97161-GP; 99284-25

== ENCOUNTER 2017-02-10 10:11 | Emergency (ER) | payer OTHER, MEDICARE ==
--- NOTE | 2017-02-10 10:25 | PDOC ---
Attending Attestation - Critical Care Time Total Critical Care Time: 120 Critical Care Statement: The care of this patient involved high complexity decision making to prevent further life threatening deterioration of the patient 's condition and/or to evaluate & treat vital organ system(s) failure or risk of failure. - Medical Decision Making 02/10/17 12:10 Dr. Pritchett (cardiology) was paged via phone answering service at 10:25 requesting a call back for doctor to doctor consult. Dr. Weller (on-call perinatal coordinator) at bedside at 10:30 Dr. Weller called to notify the patient's sister at 10:37 Dr. Favio Benjamin (patient's PCP) was paged via phone answering service at 11 :24 Dr. Weller spoke with Dr. Favio Benjamin at 11:40 The medical device assembler was called at 11:54 Dr. Favio Benjamin was paged a second time at 11:55 requesting a callback to inform him of his patient's demise/. The case was discussed with Dr. Benjamin at 11:57 <Moraima Santos - Last Filed: 02/10/17 16:01> - Resident Resident Name: Juni Severino - HPI HPI: 02/11/17 09:11 Pt presents to the ED after [facility]. Patient was apneic but not pulseless on arrival of EMS--intubated by EMS prior to arrival. ETT placement confirmed on arrival by auscultation. On arrival to the ED initial SBP in the 90's, HR in the 80's. EKG shows posterior-inferior STEMI. Cardiology paged and at the bedside. Patient then went in to cardiac arrest. ETT found to be dislodged, patient re-intubated by me. Regained pulses after 3 rounds of epinephrine and thrombolysis with TPA. Started on dopamine. EKG post code showed worsening ST elevations. [facility] contacted by Dr. Weller, who agreed to transfer patient for CCU care. However, the patient went back into cardiac arrest, and did not respond to extensive rescusitation. Pronounced at 11:42 am. Family notified by Dr. Chavira. - Physicial Exam PE: 02/11/17 09:21 see above - Medical Decision Making 02/11/17 09:21 see above <Briseida Molina - Last Filed: 02/11/17 09:21>
[2017-02-10] MEDS ORDERED: ASPIRIN 300 MG SUPP.RECT PR ONE (10:26)
[2017-02-10 10:31] VITALS: BP 74/28; PULSE 65; TEMP 98.9; BMI 18.8
[2017-02-10] MEDS ORDERED: TENECTEPLASE 50 MG VIAL IVPUSH ONE ×2 (10:39→10:50)
[2017-02-10] MEDS ORDERED: HEPARIN INFUSION - 500 ML IVPB ONE (10:56)
[2017-02-10] MEDS ORDERED: HEPARIN NA (PORCINE) 5,000 UNITS/ML 1ML VIAL IVPUSH PRN ×2 (10:57)
[2017-02-10] MEDS ORDERED: ALTEPLASE 50 MG VIAL IVPB ONE (10:58)
[2017-02-10] MEDS ORDERED: HEPARIN INFUSION - 500 ML IVPB SCH (11:00)
[2017-02-10] MEDS ORDERED: DOPAMINE 400 MG/D5W - 250 ML IVPB SCH (11:00)
[2017-02-10 11:08] LABS: INR 1.15 (0.82-1.09); PROTHROMBIN TIME (PATIENT) 12.7 SEC (9.98-11.88)
--- NOTE | 2017-02-10 11:12 | PDOC ---
History of Present Illness - General Chief Complaint: Respiratory Arrest Stated Complaint: UNRESPONSIVE Time Seen by Provider: 02/10/17 10:21 - History of Present Illness Initial Comments: 02/10/17 11:05 Ms. Batista is an 87 yo female with a significant past medical history of who presents to the emergency department after found pulseless at her residence. She was given 3 rounds of CPR and transferred to ER. En route pulse was colten in the 50's with 12-15 respirations per EMS. She was intubated with etomidate 14mg and bagged with no change in status. Presented with a 22 guage IV in her L wrist and 150 cc's of fluid. Pressures were 70/30 and 50/40 in route. Past History - Past Medical History Allergies/Adverse Reactions: Allergies Allergy/AdvReac Type Severity Reaction Status Date / Time No Known Allergies Allergy Verified 02/10/17 10:31 Home Medications: Ambulatory Orders Acetaminophen [Tylenol .Regular Strength -] 650 mg PO Q6H PRN #0 tablet Cephalexin [Keflex] 500 mg PO BID #6 capsule 01/03/17 Enoxaparin [Lovenox -] 40 mg SQ DAILY #30 syringe 01/03/17 Insulin (Levemir) [Levemir Vial] 12 units SQ AM #60 ml 01/03/17 Insulin Sliding Scale [Novolog Vial Sliding Scale -] 1 vial SQ TIDAC units 11/15 Lidocaine 5% Patch [Lidoderm -] 1 patch TP DAILY #30 patch 01/03/17 Metformin HCl [Glucophage -] 500 mg PO BID@0700,1630 #60 tablet 01/03/17 Polyethylene Glycol 3350 [Miralax 119 gm Btl -] 17 gm PO DAILY PRN #1 bottle 11/15 Diabetes: Yes (nid) - Surgical History Orthopedic Surgery: Yes (R hip FX, REPAIR) - Immunization History Immunization Up to Date: Yes - Psycho/Social/Smoking Cessation Hx Anxiety: No Suicidal Ideation: No Smoking History: Unknown if ever smoked Have you smoked in the past 12 months: Yes Number of Cigarettes Smoked Daily: 10 Information on smoking cessation initiated: No 'Breaking Loose' booklet given: 12/30/16 Hx Alcohol Use: No Drug/Substance Use Hx: No Substance Use Type: None Review of Systems - Review of Systems Comments:: History limited. Patient reported unresponsive by EMS. *Physical Exam - Vital Signs Last Vital Signs Temp Pulse Resp BP Pulse Ox 98.9 F 65 21 74/28 100 02/10/17 10:29 02/10/17 10:29 02/10/17 10:29 02/10/17 10:29 02/10/17 10:29 - Physical Exam Comments: 02/10/17 11:13 GENERAL: Unresponsive HEAD: No signs of trauma EYES: Pupils unreactive ENT: No signs of trauma. NECK: Normal ROM, supple, no lymphadenopathy, JVD, or masses LUNGS: Patient presented intubated and bagged HEART: Bradycardic ABDOMEN: Soft, nontender, normoactive bowel sounds SKIN: Cool, Dry, normal turgor, no rashes or lesions noted. ED Treatment Course - LABORATORY CBC & Chemistry Diagram: 02/10/17 10:44 02/10/17 10:44 - RADIOLOGY Radiology Studies Ordered: Category Date Time Status CHEST X-RAY PORTABLE* [RAD] Stat Radiology 02/10/17 10:22 Ordered Medical Decision Making - Medical Decision Making 02/10/17 11:15 Patient presented in acute distress with EKG showing STEMI. Was given 2 rounds of epinephrine with CPR, no dopamine, TKA administered. ROSC obtained. Repeat EKG ordered. Dopamine 10 ordered / hung. Patient lost spontaneous compression multiple times , more epi/rounds of cpr administered. 2 shocks administered when rhythm changed to v-fib, amiodorone administered but unable to regain heart rhythm. Patient 1142. *DC/Admit/Observation/Transfer Diagnosis at time of Disposition: STEMI (ST elevation myocardial infarction) Qualifiers: Involved coronary artery: unspecified coronary artery Qualified Code(s): I21.3 - ST elevation (STEMI) myocardial infarction of unspecified site - Discharge Dispostion Disposition: - Attestations Physician Attestion: 02/10/17 12:26 I, Dr. Juni Severino, attest that this document has been prepared under my direction and personally reviewed by me in its entirety. I further attest, that it accurately reflects all work, treatment, procedures and medical decision -making performed by me.
[2017-02-10 11:26] LABS: VENOUS BLOOD GAS HCO3 4.5 meq/L (19-25)
[2017-02-10 11:28] LABS: VENOUS PH 6.66 (7.32-7.42)
[2017-02-10 11:41] LABS: MCH 31.9 pg (25.7-33.7); MCHC 25.7 g/dl (32.0-36.0); MEAN CELL VOLUME 124.3 fl (80-96); MEAN PLT VOLUME 8.9 fl (7.5-11.1); PLATELET COUNT 305 K/MM3 (134-434); RDW 17.1 % (11.6-15.6); WHITE BLOOD COUNT 13.6 K/mm3 (4.0-10.0)
--- NOTE | 2017-02-10 11:57 | PN ---
Progress Note (short form) - Note Progress Note: Cardiology Consult Dictated IMP: Acute inferoposterior STEMI Cardiac arrest REC: After intubation, thrombolysis and multiple recussitative efforts and discussion with family patient .
[2017-02-10 11:58] LABS: ANION GAP 30 (8-16); BILIRUBIN,TOTAL 0.6 mg/dL (0.2-1.0); CALCIUM 9.4 mg/dL (8.5-10.1); CO2 6 mmol/L (21-32); CREATININE 2.3 mg/dL (0.55-1.02); TOT PROT 6.5 g/dl (6.4-8.2)
[2017-02-10 12:01] LABS: ALK PHOS 131 U/L (45-117); CPK 164 IU/L (26-192)
[2017-02-10 12:03] LABS: GLUCOSE,RANDOM 1102 mg/dL (74-106)
[2017-02-10 12:04] LABS: SGPT/ALT 570 U/L (12-78); TROPONIN I 2.02 ng/ml (0.00-0.05)
[2017-02-10 12:05] LABS: SGOT/AST 1195 U/L (15-37)
--- NOTE | 2017-02-10 12:43 | CONS ---
DATE OF CONSULTATION: 02/10/2017 REQUESTED BY: Briseida Molina MD in the emergency room. REASON FOR CONSULTATION: Inferior ST-elevation ID, cardiac arrest. HISTORY OF PRESENT ILLNESS: The patient is an 87-year-old female with past medical history of diabetes who presents to the emergency department after reportedly being found pulseless at her residence. She was intubated by EMS and found to have inferior ST elevations on EKG. Shortly after presenting to the emergency department, she became bradycardic and reportedly asystolic. CPR was initiated and I was called overhead. Upon arrival in the ER, patient was being resuscitated and presenting 12-lead ECG revealed what appeared to be an acute inferoposterior ID. Patient was given rounds of epinephrine as per ACLS protocol. There were no advance directives readily available. I spoke to her nieces, her next of kin, who were unaware of any preexisting wishes and asked us to perform CPR until they could arrive in the emergency department. In light of this, a decision was made to give thrombolysis. She was given TNK in the ER. After initial resuscitative efforts and administration of TNK, patient regained pulse and blood pressure. Cooling protocol was initiated. ECG continued to reveal inferior ST elevations and rhythm was unclear: Atrial fibrillation versus Sinus with complete heart block. Transcutaneous pacing pads were attached but pacing was not required. Low dose dopamine was initiated for hemodynamic support. Shortly after return of pulse and pressure, patient again became bradycardic and with asystole. CPR was reinitiated, rhythm then revealed ventricular fibrillation for which several shocks were administered. Ongoing resuscitative efforts continued. After approximately 15 minutes of resuscitation, patient had no pulse and remained in asystole. CPR was continued, ACLS protocol was continued. Spoke to niece and niece's who agreed that resuscitative efforts should be stopped. Niece's recalls patient had preexisting DNR, although did not have documentation. Informed ER physician of above discussion, at which time our resuscitative efforts were stopped. Patient remained without pulse and without electrical activity, at which time she was pronounced . PAST MEDICAL HISTORY: Includes diabetes, insulin dependent. ALLERGIES: None. FAMILY HISTORY: Noncontributory. SOCIAL HISTORY: residential resident. Unclear if ever smoked. DETENTION MEDICATIONS: Reviewed as listed in the electronic medical record included MiraLaX, metformin, sliding scale insulin, Levemir, Lovenox 40 mg subcutaneous daily, and Tylenol p.r.n. INITIAL PHYSICAL EXAMINATION:Vital Signs: Afebrile, temperature 98.9, pulse 65, recorded blood pressure of 74/28, intubated, saturating 100%, 35% FIO2. Heart: Irregular. Lungs: Equal breath sounds bilaterally after intubation, no wheezing. Extremities: Initially warm with no significant edema. LABORATORIES: Pending. INR 1.15, PTT 74. VBG with PH of 6.66, PCO2 of 42. ASSESSMENT: Elderly female with history of diabetes presenting with an acute inferior-posterior myocardial infarction, cardiac arrest with extensive resuscitative efforts in the emergency department, including administration of thrombolysis, ventricular fibrillation arrest, advanced cardiac life support protocol followed on 2 separate occasions. Despite maximal efforts at resuscitation and revascularization medically, patient remained asystolic with no pulse. Extensive family discussion, at which time decision made to stop resuscitative efforts. PMD notified. Patient with family present. [place] [id number] MTDD
[2017-02-10 14:17] LABS: METAMYELOCYTE 7 % (0-2); PLATELET ESTIMATE ADEQUATE (NORMAL)
--- NOTE | 2017-02-12 09:30 | EKG ---
Test Reason : Blood Pressure : / mmHG Vent. Rate : 085 BPM Atrial Rate : 085 BPM P-R Int : 118 ms QRS Dur : 084 ms QT Int : 364 ms P-R-T Axes : -87 092 095 degrees QTc Int : 433 ms UNUSUAL P AXIS AND SHORT AL, PROBABLE JUNCTIONAL TACHYCARDIA WITH OCCASIONAL PREMATURE VENTRICULAR COMPLEXES RIGHTWARD AXIS ST ELEVATION CONSIDER INFEROLATERAL INJURY OR ACUTE INFARCT ACUTE VT / STEMI Consider right ventricular involvement in acute inferior infarct ABNORMAL ECG WHEN COMPARED WITH ECG OF 29-DEC-2016 17:29, SIGNIFICANT CHANGES HAVE OCCURRED Confirmed by DAVID HAN MD ([id number]) on 02/12/2017 9:30:37 AM Referred By: Confirmed By:DAVID HAN MD
--- NOTE | 2017-02-17 18:43 | EKG ---
Test Reason : Blood Pressure : / mmHG Vent. Rate : 070 BPM Atrial Rate : 340 BPM P-R Int : 000 ms QRS Dur : 100 ms QT Int : 384 ms P-R-T Axes : 000 101 090 degrees QTc Int : 414 ms ATRIAL FIBRILLATION WITH PREMATURE VENTRICULAR OR ABERRANTLY CONDUCTED COMPLEXES RIGHTWARD AXIS ST ELEVATION CONSIDER INFERIOR INJURY OR ACUTE INFARCT ST ELEVATION CONSIDER ANTERIOR INJURY OR ACUTE INFARCT ACUTE NH / STEMI Consider right ventricular involvement in acute inferior infarct ABNORMAL ECG WHEN COMPARED WITH ECG OF 10-FEB-2017 10:16, ATRIAL FIBRILLATION HAS REPLACED JUNCTIONAL RHYTHM ST NOW DEPRESSED IN LATERAL LEADS Confirmed by KAREN AUSTIN MD ([id number]) on 02/17/2017 6:43:35 PM Referred By: Confirmed By:KAREN AUSTIN MD
== END 2017-02-10 14:13 | disposition expired ==
LOC: JER 10:11
PROC: 3E033GC Introduction of Other Therapeutic Substance into Peripheral Vein, Percutaneous Approach (ICD-10-PCS; principal; 2017-02-10)
PROC: 5A12012 Performance of Cardiac Output, Single, Manual (ICD-10-PCS; 2017-02-10)
DX: I21.3 ST elevation (STEMI) myocardial infarction of unspecified site (principal); E11.9 Type 2 diabetes mellitus without complications; Z79.4 Long term (current) use of insulin; F17.210 Nicotine dependence, cigarettes, uncomplicated
CPT/HCPCS: 36415; 80053; 82553; 82803; 84484; 85025; 85610; 85730; 92950; 93005; 93010; 96365; 96368; 96375; 99283-25; J1644; J2997; J3101